=== PATIENT | male | born 1965 | race Caucasian/White ===

== ENCOUNTER 2019-11-29 20:55 | Emergency (ER) | payer MEDICAID ==
[~2019-11-29] VITALS: Ht 185.4 cm; Wt 80.0 kg
[2019-11-29] MEDS ORDERED: ACETAMINOPHEN WITH CODEINE 300/30MG TABLET PO ONE (22:30)
[2019-11-29 22:49] VITALS: BP 185/120
== END 2019-11-29 23:32 | disposition home or self-care (01) ==
LOC: ER 20:55
DX: S92.422A Displaced fracture of distal phalanx of left great toe, initial encounter for closed fracture (principal); W22.09XA Striking against other stationary object, initial encounter; Y93.9 Activity, unspecified; Y92.9 Unspecified place or not applicable
CPT/HCPCS: 73630; 99283; Z7610